=== PATIENT | male | born 1995 ===

== ENCOUNTER → 2019-02-23 21:17 | Outpatient (REF) | payer OTHER, SELFPAY ==
[2019-02-24 02:00] LABS: Alanine Aminotransferase 52 IU/L (21-72); Albumin 4.7 g/dL (3.5-5.0); Albumin Globulin Ratio 1.4 (1.0-2.8); Alkaline Phosphatase 143 U/L (38-126); Aspartate Aminotransferase 50 IU/L (17-59); BUN Creatinine Ratio 12.7 (6-22); Bilirubin Total 0.5 mg/dL (0.2-1.3); Blood Urea Nitrogen 14 mg/dL (9-20); Calcium 9.9 mg/dL (8.4-10.2); Carbon Dioxide 26 mmol/L (22-32); Chloride 106 mmol/L (98-107); Estimated Glomerular Filt Rate > 60.0 mL/min (>60); Globulin 3.4 g/dL (1.7-4.1); Glucose 103 mg/dL (70-100); HEMOLYSIS < 15 (0-50); Potassium 5.1 mmol/L (3.4-5.1); Sodium 142 mmol/L (137-145); Total Protein 8.1 g/dL (6.3-8.2)
[2019-02-24 02:18] LABS: Follicle Stimulating Hormone 1.11 mIU/mL; Luteinizing Hormone 2.89 mIU/mL
[2019-02-24 02:34] LABS: Testosterone 74.1 ng/dL (132-813)
[2019-02-26 12:16] LABS: Progesterone < 0.5 ng/mL (< 1.4)
[2019-02-26 19:58] LABS: Estrogen 178.5 pg/mL (60-190)
== END ==
LOC: LAB 21:17
PROVIDERS: Visit Provider Family Medicine
DX: F64.0 Transsexualism (principal); R79.89 Other specified abnormal findings of blood chemistry
CPT/HCPCS: 36415; 80053; 82672; 83001; 83002; 84144; 84270; 84403

== ENCOUNTER → 2019-03-23 21:12 | Outpatient (REF) | payer OTHER, SELFPAY ==
[2019-03-23 22:12] LABS: Progesterone, Total 3.28 ng/mL
[2019-03-23 22:50] LABS: Testosterone 67.2 ng/dL (132-813)
[2019-03-26 20:46] LABS: Estrogen 145.1 pg/mL
== END ==
LOC: LAB 21:12
PROVIDERS: Visit Provider Family Medicine
DX: F64.0 Transsexualism (principal)
CPT/HCPCS: 36415; 82672; 84144; 84403